=== PATIENT | female | born 1980 | race African-American/Black ===

== ENCOUNTER 2023-03-31 13:49 | Emergency (ER) | payer OTHER ==
[2023-03-31 14:00] VITALS: BP 123/80; PULSE 83; RESP 18; TEMP 98; BMI 29.3
== END 2023-03-31 17:49 | disposition home or self-care (01) ==
LOC: JER 13:49
DX: O20.9 Hemorrhage in early pregnancy, unspecified (principal); O36.8320 Maternal care for abnormalities of the fetal heart rate or rhythm, second trimester, not applicable or unspecified; Z3A.17 17 weeks gestation of pregnancy
CPT/HCPCS: 76801-TC; 99284-25